=== PATIENT | male | born 1985 | race African-American/Black ===

== ENCOUNTER 2018-01-10 00:13 | Emergency (ER) | payer OTHER ==
[~2018-01-10] VITALS: Ht 170.2 cm; Wt 68.0 kg
[~2018-01-10 00:13] MED LIST: ABILIFY; WELLBUTRIN
[2018-01-10] MEDS ORDERED: ACETAMINOPHEN WITH CODEINE 300/30MG TABLET PO ONE (06:45)
[2018-01-10] MEDS ORDERED: LIDOCAINE HCL 1% 20ML VIAL (Pyxis) INJ MC ONE (06:45)
[2018-01-10] MEDS ORDERED: BACITRACIN ZINC OINT UDPKT TOP ONE (06:45)
[2018-01-10] MEDS ORDERED: LIDOCAINE HCL/PF 1% 10 MG/ML 5ML VIAL IJ SCH (07:00)
[2018-01-10 08:33] VITALS: BP 114/73
== END 2018-01-10 08:37 | disposition home or self-care (01) ==
LOC: ER 00:13
DX: S61.411A Laceration without foreign body of right hand, initial encounter (principal); J45.909 Unspecified asthma, uncomplicated; F32.9 Major depressive disorder, single episode, unspecified; F20.9 Schizophrenia, unspecified; F17.200 Nicotine dependence, unspecified, uncomplicated; F12.10 Cannabis abuse, uncomplicated; W25.XXXA Contact with sharp glass, initial encounter; Y93.89 Activity, other specified; Y92.89 Other specified places as the place of occurrence of the external cause; Y99.8 Other external cause status
CPT/HCPCS: 12002; 73130; 99284; J3490; X7700; Z7610

== ENCOUNTER 2018-01-18 10:24 | Emergency (ER) | payer SELFPAY ==
[~2018-01-18] VITALS: Ht 167.6 cm; Wt 75.0 kg
[2018-01-18] MEDS ORDERED: CEFTRIAXONE SODIUM 1 G/VIAL IM ONE (13:15)
[2018-01-18] MEDS ORDERED: LIDOCAINE HCL/EPINEPHRINE 1%-EPI 1:100,000 20 ML VIAL INFIL ONE (13:15)
[2018-01-18] MEDS ORDERED: IBUPROFEN 800MG TABLET PO ONE (13:30)
[2018-01-18] MEDS ORDERED: BACITRACIN ZINC OINT UDPKT TOP ONE (13:30)
[2018-01-18 13:37] VITALS: BP 122/79
== END 2018-01-18 13:40 | disposition home or self-care (01) ==
LOC: ER 10:44
DX: Z48.02 Encounter for removal of sutures (principal); L03.113 Cellulitis of right upper limb; J45.909 Unspecified asthma, uncomplicated; F32.9 Major depressive disorder, single episode, unspecified; F20.9 Schizophrenia, unspecified; F17.200 Nicotine dependence, unspecified, uncomplicated
CPT/HCPCS: 96372; 99283; J0696; J3490; Z7610